=== PATIENT | male | born 1940 | race Caucasian/White ===

== ENCOUNTER → 2017-10-13 | Outpatient (CLI) | payer MEDICARE, OTHER ==
[~2017-10-13] MED LIST: FOSI20TA PO; GLUCTAB OR
--- NOTE | 2017-10-13 16:52 | RADRPT ---
EXAM DATE/TIME: 10/13/2017 14:32 CORRECTION Corrected on: October 14, 2017; [place] COMPARISON: No previous studies available for comparison. INDICATIONS : Tremors in bilateral hands and face. DOSE: 4.5 mCi Ioflupane Iodine-123 in 2.5 ml total volume MEDICATION(S): 130 mg Potasium Iodine PO one hour prior to injection SPECT IMAGIN.5 hrs. IMAGING: SPECT/CT imaging with fusion was performed. RADIATION DOSE: 30.27 CTDIvol (mGy) MEDICAL HISTORY : Hypertension. Diabetes mellitus type 2. SURGICAL HISTORY : Tonsillectomy. Skin cancer removal and facial reconstruction. ENCOUNTER: Initial ACUITY: 2 months PAIN SCALE: 0/10 LOCATION: Head. TECHNIQUE: SPECT imaging of the brain was performed in sagittal, axial and coronal planes. Attenuation correctio n was performed with computed tomography and both the attenuation correction and non-attenuation oz ected data sets were reviewed. FINDINGS: There is normal biodistribution of radionuclide with crescent-shaped areas of activity are in the str iatum on the left. However, the distribution of the right is somewhat lobulated. No corresponding abn ormality on the accompanying CT. Mild, diffuse but symmetric atrophic changes. CONCLUSION: Positive PHILIP scan with lobulated appearance of the right striatum. Pola Minor MD on October 13, 2017 at 16:44 Board Certified Radiologist. This report was verified electronically. William Cordoba MD FACR on October 14, 2017 at 11:50 Board Certified Radiologist. This report was verified electronically.
== END ==
LOC: HRAD 09:20
PROVIDERS: ATTEND Specialist
DX: R25.1 Tremor, unspecified (principal)
CPT/HCPCS: 78607; A9584

== ENCOUNTER 2018-06-25 17:30 | Observation (INO) ==
--- NOTE | 2018-06-25 19:01 | ED ---
HPI General Chief Complaint: Neuro Symptoms/Deficit Stated Complaint: Slurred Speech Time Seen by Provider: 06/25/18 18:41 Source: patient Mode of arrival: ambulatory Limitations: no limitations History of Present Illness HPI Narrative: Patient has altered mental status since 11 AM today. Patient also was somnolent and additionally showed weakness questionably to the left side. According to patient is much improved but still moderately confused at the present time. Related Data Home Medications Medication Instructions Recorded Confirmed escitalopram oxalate 10 mg PO DAILY 02/25/18 06/25/18 gabapentin 100 mg PO TID 02/25/18 06/25/18 gemfibrozil 600 mg PO BID 02/25/18 06/25/18 glyburide-metformin 1 tab PO BID 02/25/18 06/25/18 lisinopril 10 mg PO DAILY 02/25/18 06/25/18 metoprolol tartrate 25 mg PO BID 02/25/18 06/25/18 primidone 50 mg PO Q12H 02/25/18 06/25/18 sitagliptin [Januvia] 100 mg PO DAILY 02/25/18 06/25/18 Previous Rx's Medication Instructions Recorded aspirin 325 mg PO DAILY 30 Days #30 tab 06/26/18 hydrochlorothiazide 12.5 mg PO DAILY 30 Days #30 cap 06/26/18 Allergies Allergy/AdvReac Type Severity Reaction Status Date / Time No Known Allergies Allergy Verified 06/25/18 17:38 Review of Systems ROS: all other systems reviewed are negative [facility] Medical History Medical History Dementia (Acute) Diabetes (Acute) History of depression (Acute) History of skin cancer (Acute) Hypertension (Acute) Parkinson disease (Acute) Surgical History Surgical History History of facial surgery (Acute) History of nasal surgery (Acute) Hx of tonsillectomy (Acute) Family History Family History Other Family history non-contributory Social History Social History Substance History: No History of Abuse Second Hand Smoke Exposure: No Smoking Status: Never smoker How Often Do You Have a Drink Containing Alcohol: Never Recent Travel in [facility] within the Last 8 Weeks: No Recent Out of Country Travel within the Last 8 Weeks: No Immunization History Tetanus Immunization: Unsure Exam Narrative Exam Narrative: GENERAL: Minimal confusion but from 's perception there is a significant change since 11 AM that is improving as patient is evaluated SKIN: Focused skin assessment warm/dry. HEAD: Atraumatic. Normocephalic. EYES: Pupils equal and round. No scleral icterus. No injection or drainage. ENT: No nasal bleeding or discharge. Mucous membranes pink and moist. NECK: Trachea midline. No JVD. CARDIOVASCULAR: Regular rate and rhythm. No murmur appreciated. RESPIRATORY: No accessory muscle use. Clear to auscultation. Breath sounds equal bilaterally. GASTROINTESTINAL: Abdomen soft, non-tender, nondistended. Hepatic and splenic margins not palpable. MUSCULOSKELETAL: No obvious deformities. No clubbing. No cyanosis. No edema. NEUROLOGICAL: Awake and alert. No obvious cranial nerve deficits. Motor grossly within normal limits. Normal speech. Reflexes equal bilaterally PSYCHIATRIC: Appropriate mood and affect; insight and judgment normal. Course Reevaluation(s) Reevaluation #1: Patient improved as far as his mentation and is alert and functional. Although patient is still somewhat somnolent. CT and CTA of head and neck shows no significant abnormality other than some narrowing of carotid arteries. Case previously discussed with Dr. Finn who stated in the situation to admit with MRI in a.m. and neuro consult. Time: 23:39 Initial Documented Vital Signs Temperature 98.3 F 06/25/18 17:34 Pulse Rate 74 06/25/18 17:34 Respiratory Rate 16 06/25/18 17:34 Blood Pressure 120/63 06/25/18 17:34 Pulse Oximetry 95 06/25/18 17:34 Last Documented Vital Signs Temperature 97.1 F L 06/26/18 16:00 Pulse Rate 69 06/26/18 16:00 Respiratory Rate 20 06/26/18 16:00 Blood Pressure 166/81 H 06/26/18 16:00 Pulse Oximetry 98 06/26/18 16:00 Critical Care Time Critical Care Time: No NIH Stroke Scale NIH Stroke Scale Level of Consciousness: 0-Alert Orientation Questions: 0-Answers both correct Responds to Commands: 0-Both tasks correct Gaze Eye Movement: 0-Horizontal movement WNL Visual [place]: 0-No visual field defect Facial Movement: 0-Normal Motor Functions Arm LEFT: 0-No drift Motor Functions Arm RIGHT: 0-No drift Motor Functions Leg LEFT: 0-No drift Motor Functions Leg RIGHT: 0-No drift Limb Ataxia: 0-No ataxia Sensory Loss: 0-No sensory loss Best Language: 0-Normal Articulation: 0-Normal Extinction or Inattention Sensory: 0-Absent Total: 0 Medical Decision Making MDM Narrative Medical Screen Exam Complete: Yes Emergency Medical Condition: Yes Lab Data Result diagrams: 06/26/18 06:58 06/26/18 06:58 Lab Results 06/25/18 06/25/18 06/25/18 Range/Units 18:45 18:45 18:45 CBC w Diff Auto diff final WBC 9.3 (4.0-11.0) th/mm3 RBC 4.41 L (4.50-5.90) mil/mm3 Hgb 14.0 (13.0-17.0) gm/dL Hct 42.1 (39.0-51.0) % MCV 95.4 (80.0-100.0) fL MCH 31.8 (27.0-34.0) pg MCHC 33.3 (32.0-36.0) % RDW 13.8 (11.6-17.2) % Plt Count 206 (150-450) th/mm3 MPV 8.8 (7.0-11.0) fL Neut % (Auto) 58.0 (16.0-70.0) % Lymph % (Auto) 27.6 (9.0-44.0) % Russell % (Auto) 9.6 H (0.0-8.0) % Eos % (Auto) 3.9 (0.0-4.0) % Baso % (Auto) 0.9 (0.0-2.0) % Neut # (Auto) 5.2 (1.8-7.7) th/mm3 Lymph # (Auto) 2.6 (1.0-4.8) th/mm3 Russell # (Auto) 0.9 (0.0-0.9) th/mm3 Eos # (Auto) 0.4 (0.0-0.4) th/mm3 Baso # (Auto) 0.1 (0.0-0.2) th/mm3 WBC Differential . Differential Comment . PT 11.7 H (9.8-11.6) sec INR 1.2 Ratio APTT 26.1 (23.4-31.7) sec Sodium 143 (136-145) meq/L Potassium 4.3 (3.5-5.1) meq/L Chloride 110 H (98-107) meq/L Carbon Dioxide 24.7 (21.0-32.0) meq/L Anion Gap 8 (5-15) meq/L BUN 23 H (7-18) mg/dL Creatinine 1.10 (0.60-1.30) mg/dL Estimated GFR 65 L (>89) mL/min POC Glucose (68-110) mg/dl Random Glucose 144 H (74-106) mg/dL Calcium 8.9 (8.5-10.1) mg/dL Total Bilirubin (0.2-1.0) mg/dL AST (15-37) U/L ALT (12-78) U/L Alkaline Phosphatase (45-117) U/L Total Creatine Kinase 70 (39-308) U/L Troponin I Less than 0.02 L (0.02-0.05) ng/mL Total Protein (6.4-8.2) g/dL Albumin (3.4-5.0) g/dL Triglycerides (42-150) mg/dL Cholesterol (120-200) mg/dL LDL Cholesterol, Calc (0-99) mg/dL HDL Cholesterol (40.0-60.0) mg/dL Cholesterol/HDL Ratio Ratio Urine Color (Yellw/Straw) Urine Clarity (Clear) Urine pH (5.0-8.5) Ur Specific [place] (1.002-1.035) Urine Protein (Neg-Trace) mg/dL Urine Glucose (UA) (Negative) mg/dL Urine Ketones (Negative) mg/dL Urine Occult Blood (Negative) Urine Nitrate (Negative) Urine Bilirubin (Negative) Urine Urobilinogen (Less than 2) mg/dL Ur Leukocyte Esterase (Negative) Urine WBC (0-5) /hpf Hyaline Casts (0-3) /lpf Urine Mucus (Occasional) /lpf Micro UA Comment Ur Microscopic Review Urine Culture Comments 06/25/18 06/26/18 06/26/18 Range/Units 20:50 06:58 06:58 CBC w Diff Auto diff final WBC 8.2 (4.0-11.0) th/mm3 RBC 4.41 L (4.50-5.90) mil/mm3 Hgb 14.3 (13.0-17.0) gm/dL Hct 41.4 (39.0-51.0) % MCV 93.8 (80.0-100.0) fL MCH 32.5 (27.0-34.0) pg MCHC 34.6 (32.0-36.0) % RDW 13.2 (11.6-17.2) % Plt Count 177 (150-450) th/mm3 MPV 8.8 (7.0-11.0) fL Neut % (Auto) 58.1 (16.0-70.0) % Lymph % (Auto) 24.5 (9.0-44.0) % Russell % (Auto) 12.0 H (0.0-8.0) % Eos % (Auto) 4.7 H (0.0-4.0) % Baso % (Auto) 0.7 (0.0-2.0) % Neut # (Auto) 4.7 (1.8-7.7) th/mm3 Lymph # (Auto) 2.0 (1.0-4.8) th/mm3 Russell # (Auto) 1.0 H (0.0-0.9) th/mm3 Eos # (Auto) 0.4 (0.0-0.4) th/mm3 Baso # (Auto) 0.1 (0.0-0.2) th/mm3 WBC Differential . Differential Comment . PT (9.8-11.6) sec INR Ratio APTT (23.4-31.7) sec Sodium 144 (136-145) meq/L Potassium 3.8 (3.5-5.1) meq/L Chloride 110 H (98-107) meq/L Carbon Dioxide 26.6 (21.0-32.0) meq/L Anion Gap 7 (5-15) meq/L BUN 22 H (7-18) mg/dL Creatinine 1.00 (0.60-1.30) mg/dL Estimated GFR 73 L (>89) mL/min POC Glucose (68-110) mg/dl Random Glucose 137 H (74-106) mg/dL Calcium 8.9 (8.5-10.1) mg/dL Total Bilirubin 0.4 (0.2-1.0) mg/dL AST 34 (15-37) U/L ALT 52 (12-78) U/L Alkaline Phosphatase 88 (45-117) U/L Total Creatine Kinase (39-308) U/L Troponin I (0.02-0.05) ng/mL Total Protein 6.6 (6.4-8.2) g/dL Albumin 3.3 L (3.4-5.0) g/dL Triglycerides 235 H (42-150) mg/dL Cholesterol 168 (120-200) mg/dL LDL Cholesterol, Calc 78 (0-99) mg/dL HDL Cholesterol 43.1 (40.0-60.0) mg/dL Cholesterol/HDL Ratio 3.89 Ratio Urine Color Yellow (Yellw/Straw) Urine Clarity Clear (Clear) Urine pH 5.0 (5.0-8.5) Ur Specific [place] 1.025 (1.002-1.035) Urine Protein Negative (Neg-Trace) mg/dL Urine Glucose (UA) Negative (Negative) mg/dL Urine Ketones Negative (Negative) mg/dL Urine Occult Blood Negative (Negative) Urine Nitrate Negative (Negative) Urine Bilirubin Negative (Negative) Urine Urobilinogen 0.2 (Less than 2) mg/dL Ur Leukocyte Esterase Negative (Negative) Urine WBC 0-5 (0-5) /hpf Hyaline Casts 0-3 (0-3) /lpf Urine Mucus Few H (Occasional) /lpf Micro UA Comment Culture not ind Ur Microscopic Review Microscopic reviewed Urine Culture Comments Culture not ind 06/26/18 06/26/18 06/26/18 Range/Units 09:58 11:54 16:31 CBC w Diff WBC (4.0-11.0) th/mm3 RBC (4.50-5.90) mil/mm3 Hgb (13.0-17.0) gm/dL Hct (39.0-51.0) % MCV (80.0-100.0) fL MCH (27.0-34.0) pg MCHC (32.0-36.0) % RDW (11.6-17.2) % Plt Count (150-450) th/mm3 MPV (7.0-11.0) fL Neut % (Auto) (16.0-70.0) % Lymph % (Auto) (9.0-44.0) % Russell % (Auto) (0.0-8.0) % Eos % (Auto) (0.0-4.0) % Baso % (Auto) (0.0-2.0) % Neut # (Auto) (1.8-7.7) th/mm3 Lymph # (Auto) (1.0-4.8) th/mm3 Russell # (Auto) (0.0-0.9) th/mm3 Eos # (Auto) (0.0-0.4) th/mm3 Baso # (Auto) (0.0-0.2) th/mm3 WBC Differential Differential Comment PT (9.8-11.6) sec INR Ratio APTT (23.4-31.7) sec Sodium (136-145) meq/L Potassium (3.5-5.1) meq/L Chloride (98-107) meq/L Carbon Dioxide (21.0-32.0) meq/L Anion Gap (5-15) meq/L BUN (7-18) mg/dL Creatinine (0.60-1.30) mg/dL Estimated GFR (>89) mL/min POC Glucose 238 H 130 H 124 H (68-110) mg/dl Random Glucose (74-106) mg/dL Calcium (8.5-10.1) mg/dL Total Bilirubin (0.2-1.0) mg/dL AST (15-37) U/L ALT (12-78) U/L Alkaline Phosphatase (45-117) U/L Total Creatine Kinase (39-308) U/L Troponin I (0.02-0.05) ng/mL Total Protein (6.4-8.2) g/dL Albumin (3.4-5.0) g/dL Triglycerides (42-150) mg/dL Cholesterol (120-200) mg/dL LDL Cholesterol, Calc (0-99) mg/dL HDL Cholesterol (40.0-60.0) mg/dL Cholesterol/HDL Ratio Ratio Urine Color (Yellw/Straw) Urine Clarity (Clear) Urine pH (5.0-8.5) Ur Specific [place] (1.002-1.035) Urine Protein (Neg-Trace) mg/dL Urine Glucose (UA) (Negative) mg/dL Urine Ketones (Negative) mg/dL Urine Occult Blood (Negative) Urine Nitrate (Negative) Urine Bilirubin (Negative) Urine Urobilinogen (Less than 2) mg/dL Ur Leukocyte Esterase (Negative) Urine WBC (0-5) /hpf Hyaline Casts (0-3) /lpf Urine Mucus (Occasional) /lpf Micro UA Comment Ur Microscopic Review Urine Culture Comments Imaging Data Radiologist's impression: Head CT 06/25/18 18:46 CONCLUSION: 1. No focal or acute intracranial hemorrhage. 2. Stable bilateral cortical atrophy. 3. No significant change compared to the prior exam. Report was called by [Dr. Chaney to Dr. Winston at 7:10 PM. ] Head CTA 06/25/18 18:46 CONCLUSION: 1. Unremarkable CTA of the brain. Report was called by [Dr. Chaney to Dr. Finn at 7:30 PM ] Neck CTA 06/25/18 18:46 CONCLUSION: 1. Mild atherosclerotic plaquing at the right carotid bifurcation. 2. Mild to moderate atherosclerotic plaquing at the left carotid bifurcation. 3. No significant stenosis is seen involving the right or left internal carotid arteries. Head MRI 06/26/18 00:00 CONCLUSION: 1. Bilateral cortical atrophy and chronic white matter changes. Discharge Plan Discharge Disposition Patient Disposition: 01 Discharge Home Discharge Condition Condition: Stable Discharge Order Discharge Orders: Discharge Order (Routine); Ordered 06/26/18 Ordered By: Cuca Tyler Discharge Details Anticipated Discharge Date: 06/26/18 Physicians Team ED Provider: Miki Winston Primary Care Provider: Matthew Gibson Attending Provider: Param Beckman Other Providers: Lanny Chavez Status ED Status: Left Department Discharge Information Discharge Date/Time: 06/26/18 03:56
--- NOTE | 2018-06-25 19:14 | CT ---
EXAM DATE: 06/25/2018 7:08 PM EST AGE/SEX: 78 years / Male INDICATIONS: Stroke alert. Resolved slurred speech. Confusion. CLINICAL DATA: This is the patient's initial encounter. Patient reports that signs and symptoms have been present for 1 day and indicates a pain score of 0/10. MEDICAL/SURGICAL HISTORY: Dementia. Parkinson's disease. Diabetes. Hypertension. None. RADIATION DOSE: 51.50 CTDI (mGy) COMPARISON: [facility] [place], CT HEAD W/O CONTRAST, 02/25/2018. . TECHNIQUE: CT of the head without contrast. Using automated exposure control and adjustment of the mA and/or kV according to patient size, radiation dose was kept as low as reasonably achievable to ob tain optimal diagnostic quality images. DICOM format image data is available electronically for revi ew and comparison. FINDINGS: Cerebrum: The ventricles are normal for age. There is stable bilateral cortical atrophy. No evidenc e of midline shift, mass lesion, hemorrhage or acute infarction. No extraaxial fluid collections are seen. Posterior Fossa: The cerebellum and brainstem are intact. The 4th ventricle is midline. The cerebe llopontine angle is unremarkable. Extracranial: The visualized portion of the orbits is intact. Skull: The calvaria is intact. No evidence of skull fracture. No new or significant changes are demonstrated compared to the prior examination. CONCLUSION: 1. No focal or acute intracranial hemorrhage. 2. Stable bilateral cortical atrophy. 3. No significant change compared to the prior exam. Report was called by [Dr. Chaney to Dr. Winston at 7:10 PM. ] Electronically signed by: Erick Chaney MD 06/25/2018 7:12 PM EST
[2018-06-25 19:16] LABS: Baso # (Auto) 0.1 th/mm3 (0.0-0.2); Baso % (Auto) 0.9 % (0.0-2.0); Eos # (Auto) 0.4 th/mm3 (0.0-0.4); Eos % (Auto) 3.9 % (0.0-4.0); Hematocrit 42.1 % (39.0-51.0); Lymph # (Auto) 2.6 th/mm3 (1.0-4.8); Lymph % (Auto) 27.6 % (9.0-44.0); Mean Corpuscular HGB Conc 33.3 % (32.0-36.0); Mean Corpuscular Hemoglobin 31.8 pg (27.0-34.0); Mean Corpuscular Volume 95.4 fL (80.0-100.0); Mean Platelet Volume 8.8 fL (7.0-11.0); Mono # (Auto) 0.9 th/mm3 (0.0-0.9); Mono % (Auto) 9.6 % (0.0-8.0); Neut # (Auto) 5.2 th/mm3 (1.8-7.7); Platelet Count 206 th/mm3 (150-450); Red Blood Count 4.41 mil/mm3 (4.50-5.90); Red Cell Distribution Width 13.8 % (11.6-17.2); White Blood Count 9.3 th/mm3 (4.0-11.0)
[2018-06-25 19:18] LABS: Chloride 110 meq/L (98-107); Potassium 4.3 meq/L (3.5-5.1); Sodium 143 meq/L (136-145)
[2018-06-25 19:20] LABS: Calcium 8.9 mg/dL (8.5-10.1)
[2018-06-25 19:21] LABS: Anion Gap 8 meq/L (5-15); Blood Urea Nitrogen 23 mg/dL (7-18); Carbon Dioxide 24.7 meq/L (21.0-32.0); Glucose,Random 144 mg/dL (74-106)
[2018-06-25 19:24] LABS: Activated Partial Thrombo Time 26.1 sec (23.4-31.7); Glomerular Filtration Rate 65 mL/min (>89); INR 1.2 Ratio; Prothrombin Time 11.7 sec (9.8-11.6)
[2018-06-25 19:32] LABS: Creatine Kinase 70 U/L (39-308)
--- NOTE | 2018-06-25 19:32 | CT ---
EXAM DATE: 06/25/2018 7:20 PM EST AGE/SEX: 78 years / Male INDICATIONS: Stroke alert. Resolved slurred speech. Confusion. CLINICAL DATA: This is the patient's initial encounter. Patient reports that signs and symptoms have been present for 1 day and indicates a pain score of 0/10. MEDICAL/SURGICAL HISTORY: Dementia. Parkinson's disease. Diabetes. Hypertension. None. RADIATION DOSE: 42.28 CTDI (mGy) ; Combined studies COMPARISON: No prior exams available for comparison. TECHNIQUE: Volumetric scanning was performed using a multi-row detector CT scanner during bolus infu matthew of 100 ml Visipaque 320 (iodixanol) nonionic water-soluble contrast as a cumulative dose for mu ltiple exams. The data was post processed with a variety of visualization algorithms including full volume maximum intensity projection, multi-planar sliding thin slab reformation, curved planar refor mation, and surface rendering techniques. Using automated exposure control and adjustment of the mA and/or kV according to patient size, radiation dose was kept as low as reasonably achievable to obtai n optimal diagnostic quality images. DICOM format image data is available electronically for review and comparison. FINDINGS: There is excellent visualization of the major intracranial arteries out to the second-order branch ve ssels. There is no evidence for aneurysm, vessel truncation or stenosis, and no evidence for vascula r malformation. CONCLUSION: 1. Unremarkable CTA of the brain. Report was called by [Dr. Chaney to Dr. Finn at 7:30 PM ] Electronically signed by: Erick Chaney MD 06/25/2018 7:31 PM EST
--- NOTE | 2018-06-25 19:45 | CT ---
EXAM DATE: 06/25/2018 7:36 PM EST AGE/SEX: 78 years / Male INDICATIONS: Stroke alert. Resolved slurred speech. Confusion. CLINICAL DATA: This is the patient's initial encounter. Patient reports that signs and symptoms have been present for 1 day and indicates a pain score of 0/10. MEDICAL/SURGICAL HISTORY: Dementia. Parkinson's disease. Diabetes. Hypertension. None. RADIATION DOSE: 42.28 CTDI (mGy) ; Combined studies COMPARISON: No prior exams available for comparison. TECHNIQUE: Volumetric scanning was performed using a multirow detector CT scanner during bolus infus ion of 100 ml Visipaque 320 (iodixanol) nonionic water-soluble contrast as a cumulative dose for mul tiple exams. The data was postprocessed with a variety of visualization algorithms including full-v olume maximum intensity projection, multiplanar sliding thin-slab reformation, curved-planar reformat ion, and surface-rendering techniques. Using automated exposure control and adjustment of the mA and /or kV according to patient size, radiation dose was kept as low as reasonably achievable to obtain o ptimal diagnostic quality images. DICOM format image data is available electronically for review and comparison. FINDINGS: Aortic Arch: There is a three-vessel origin of the great vessels from the aorta. No evidence of ost ial narrowing Right Carotid: The common carotid artery is intact. There is mild calcified plaquing at the carotid bifurcation. There is no evidence of any focal or significant stenosis at the origin of the right int ernal or external vessels. The right internal carotid artery is patent throughout its extent.. Left Carotid: The common carotid artery is intact. There is some mild to moderate atherosclerotic pl aquing at the carotid bifurcation. No focal significant stenosis is seen at the origin of the interna l or external vessels. The left internal carotid artery is patent throughout its extent.. Vertebrals: The vertebral arteries have a symmetric diameter. No stenotic lesions are seen. Percent stenosis is calculated using the diameter of the stenotic region over the diameter of the nor mal distal internal carotid artery. CONCLUSION: 1. Mild atherosclerotic plaquing at the right carotid bifurcation. 2. Mild to moderate atherosclerotic plaquing at the left carotid bifurcation. 3. No significant stenosis is seen involving the right or left internal carotid arteries. Electronically signed by: Erick Chaney MD 06/25/2018 7:43 PM EST
[2018-06-25 21:05] LABS: Bilirubin,Urine Negative (Negative); Clarity,Urine Clear (Clear); Color,Urine Yellow (Yellw/Straw); Glucose,Urine (UA) Negative (Negative); Leukocyte Esterase,Urine Negative (Negative); Nitrite,Urine Negative (Negative); Specific Gravity,Urine 1.025 (1.002-1.035); Urobilinogen,Urine 0.2 mg/dL (Less than 2)
[2018-06-25 21:17] LABS: Hyaline Casts,Urine 0-3 /lpf (0-3); WBC,Urine 0-5 /hpf (0-5)
[2018-06-25 21:18] LABS: Mucus,Urine Few /lpf (Occasional)
[2018-06-25] MEDS ORDERED: Aspirin 300 MG Supp RECTAL ONE (23:09)
[2018-06-25] MEDS ORDERED: Bisacodyl 10 MG Supp RECTAL PRN (23:51)
[2018-06-25] MEDS ORDERED: Acetaminophen 325 MG Tablet PO PRN (23:51)
[2018-06-26] MEDS: Sod Chloride 0.9% Inj 1,000 ML IV.CONT SCH ×4 (00:18→16:27)
[2018-06-26 08:15] LABS: Baso # (Auto) 0.1 th/mm3 (0.0-0.2); Baso % (Auto) 0.7 % (0.0-2.0); Eos # (Auto) 0.4 th/mm3 (0.0-0.4); Eos % (Auto) 4.7 % (0.0-4.0); Hematocrit 41.4 % (39.0-51.0); Hemoglobin 14.3 gm/dL (13.0-17.0); Lymph % (Auto) 24.5 % (9.0-44.0); Mean Corpuscular HGB Conc 34.6 % (32.0-36.0); Mean Corpuscular Hemoglobin 32.5 pg (27.0-34.0); Mean Corpuscular Volume 93.8 fL (80.0-100.0); Mean Platelet Volume 8.8 fL (7.0-11.0); Neut # (Auto) 4.7 th/mm3 (1.8-7.7); Neut % (Auto) 58.1 % (16.0-70.0); Platelet Count 177 th/mm3 (150-450); Red Blood Count 4.41 mil/mm3 (4.50-5.90); Red Cell Distribution Width 13.2 % (11.6-17.2); White Blood Count 8.2 th/mm3 (4.0-11.0)
--- NOTE | 2018-06-26 08:21 | P.HP ---
History of Present Illness Primary Care Physician: Matthew Gibson DO Chief Complaint: Altered mental status History of Present Illness: This is a 78-year-old male patient with a known medical history of hypertension , hyperlipidemia, diabetes who presented to the ED with altered mental status. Patient seen and examined, sitting on side of bed eating breakfast, completely alert and oriented x4. Patient states that yesterday afternoon he went to go lie down and rest after a couple hours he awoke feeling dizzy as well as with blurry vision and according to his speech was slurring. Patient also admits to some confusion. He states that over the past week he has been feeling overall fatigued and felt like he may have been developing a cold. He denies any recent fevers, chills, headache, cough, shortness of breath, dumping , nausea, vomiting or diarrhea dysuria. He does state that him and his went to [place] from Thursday to Thursday just arrived back yesterday, he states that he was not eating well going out to restaurants as well as taking his medications for 3 days. Patient follows closely with his primary care physician , denies any new changes to his medications. His diabetes is well controlled. Blood pressure is usually well controlled on his regimen from home. Patient feels much improved after IV fluids and eating breakfast, blood pressure mildly elevated, awaiting MRI and neurology consult. - Diagnosis (1) TIA (transient ischemic attack) Review of Systems All other systems reviewed negative except as stated in HPI PMFSH - History History Provided By: Patient - Medical History Medical History: Medical History (Last Reviewed 06/26/18 @ 08:13 by Cuca Tyler) Dementia Diabetes History of depression History of skin cancer Hypertension Parkinson disease - Surgical History Surgical History: Surgical History (Last Updated 06/26/18 @ 08:37 by Cuca Tyler) History of facial surgery History of nasal surgery Hx of tonsillectomy - Family History Family History: Family History (Last Updated 06/26/18 @ 08:13 by Cuca Tyler) Other Family history non-contributory - Social History I have reviewed the patient's Social History: Yes - Tobacco History Second Hand Smoke Exposure: No Smoking Status: Never smoker - Alcohol History How Often Do You Have a Drink Containing Alcohol: Never - Substance Use History Substance History: No History of Abuse - Travel History Recent Travel in the [place] Within the Last 8 Weeks: No Recent Travel Out of the Country Within the Last 8 Weeks: No - Immunization History Tetanus Immunization: >5 Years Hx Influenza Vaccine This Season: Yes Medications and Allergies Active Medications: Active Medications Acetaminophen (Tylenol) 650 mg PO Q4H PRN PRN Reason: Temp > 100.4 Al Hydroxide/Mg Hydroxide (Milk Of Magnesia Liq) 30 ml PO Q12H PRN PRN Reason: Mild Constipation Aspirin (Ecotrin) 81 mg PO DAILY AGNEL LUIS Bisacodyl (Dulcolax Supp) 10 mg RECTAL DAILY PRN PRN Reason: SEVERE CONSITIPATION Sodium Chloride (Ns Inj) 1,000 mls @ 100 mls/hr IV.CONT .Q10H [facility] Last Admin: 06/26/18 05:06 Dose: 100 mls/hr Lactulose (Lactulose Liq) 30 ml PO DAILY PRN PRN Reason: SEVERE CONSITIPATION Ondansetron HCl (Zofran Inj) 4 mg IV.PUSH Q6H PRN PRN Reason: NAUSEA OR VOMITING Senna/Docusate Sodium (Josephine-Colace) 1 tab PO BID [facility] Sennosides (Senokot) 17.2 mg PO Q12H PRN PRN Reason: Moderate Constipation Sodium Chloride (Ns Flush) 2 ml IV.FLUSH BID ANGEL LUIS Sodium Chloride (Ns Flush) 2 ml IV.FLUSH PRN PRN PRN Reason: FLUSH AFTER USING IV ACCESS Allergies Allergy/AdvReac Type Severity Reaction Status Date / Time No Known Allergies Allergy Verified 06/25/18 17:38 Home Medications Medication Instructions Recorded Confirmed Type escitalopram oxalate 10 mg PO DAILY 02/25/18 06/25/18 History gabapentin 100 mg PO TID 02/25/18 06/25/18 History gemfibrozil 600 mg PO BID 02/25/18 06/25/18 History glyburide-metformin 1 tab PO BID 02/25/18 06/25/18 History lisinopril 10 mg PO DAILY 02/25/18 06/25/18 History metoprolol tartrate 25 mg PO BID 02/25/18 06/25/18 History primidone 50 mg PO Q12H 02/25/18 06/25/18 History sitagliptin [Januvia] 100 mg PO DAILY 02/25/18 06/25/18 History Exam Vital signs: Vital Signs 06/25/18 17:34 06/25/18 18:15 06/25/18 19:15 Temperature 98.3 F Pulse Rate 74 71 71 Respiratory Rate 16 16 Blood Pressure 120/63 167/83 H Pulse Oximetry 95 95 95 06/25/18 20:40 06/25/18 22:27 06/26/18 00:05 Temperature Pulse Rate 70 67 78 Respiratory Rate 18 Blood Pressure 143/81 H 135/72 140/78 Pulse Oximetry 97 96 97 06/26/18 01:50 06/26/18 03:37 06/26/18 04:07 Temperature 98.5 F Pulse Rate 84 78 70 Respiratory Rate 18 18 20 Blood Pressure 156/78 H 151/71 H 166/79 H Pulse Oximetry 97 97 99 06/26/18 04:48 Temperature Pulse Rate 72 Respiratory Rate Blood Pressure Pulse Oximetry Intake & Output 06/25/18 06/26/18 06/26/18 18:59 06:59 18:59 Intake Total 1120 / 1120 Output Total 350 / 350 Balance 770 / 770 Weight 100 kg 100 kg Intake: IV 1000 / 1000 NS Inj 1,000 ML @ 100 mls/hr IV 1000 / 1000 .CONT .Q10H ANGEL LUIS Rx#:[id number] Oral 120 / 120 Output: Urine 350 / 350 Other: Date of Last Bowel Movement 06/25/18 Weight On Admission 100 kg Narrative: GENERAL: Well-developed, well-nourished elderly gentleman patient in [facility]. Alert and oriented x4. No weakness in upper and lower extremities. SKIN: Warm and dry. No rash. HEAD: Normocephalic. Atraumatic. EYES: Pupils equal and round. No scleral icterus. No injection or drainage. ENT: No nasal bleeding or discharge. Mucous membranes pink and moist. NECK: Supple. Trachea midline. CARDIOVASCULAR: Regular rate and rhythm. S1, S2 noted. RESPIRATORY: No accessory muscle use. Clear to auscultation. Breath sounds equal bilaterally. GASTROINTESTINAL: Abdomen soft, non-tender, nondistended. Normoactive bowel sounds x4. MUSCULOSKELETAL: No obvious deformities. Extremities without clubbing, cyanosis , or edema. NEUROLOGICAL: Awake and alert. No obvious cranial nerve deficits. Motor grossly within normal limits. 5/5 muscle strength in bilateral upper and lower extremities. Normal speech. PSYCHIATRIC: Appropriate mood and affect; insight and judgment normal. Results - Labs CBC & Chem 7: 06/26/18 06:58 06/25/18 18:45 Labs: Laboratory Results - last 24 hr 06/25/18 06/25/18 06/25/18 18:45 18:45 18:45 CBC w Diff Auto diff final WBC 9.3 RBC 4.41 L Hgb 14.0 Hct 42.1 MCV 95.4 MCH 31.8 MCHC 33.3 RDW 13.8 Plt Count 206 MPV 8.8 Neut % (Auto) 58.0 Lymph % (Auto) 27.6 Shelby % (Auto) 9.6 H Eos % (Auto) 3.9 Baso % (Auto) 0.9 Neut # (Auto) 5.2 Lymph # (Auto) 2.6 Shelby # (Auto) 0.9 Eos # (Auto) 0.4 Baso # (Auto) 0.1 WBC Differential . Differential Comment . PT 11.7 H INR 1.2 APTT 26.1 Sodium 143 Potassium 4.3 Chloride 110 H Carbon Dioxide 24.7 Anion Gap 8 BUN 23 H Creatinine 1.10 Estimated GFR 65 L Random Glucose 144 H Calcium 8.9 Total Creatine Kinase 70 Troponin I Less than 0.02 L Urine Color Urine Clarity Urine pH Ur Specific [place] Urine Protein Urine Glucose (UA) Urine Ketones Urine Occult Blood Urine Nitrate Urine Bilirubin Urine Urobilinogen Ur Leukocyte Esterase Urine WBC Hyaline Casts Urine Mucus Micro UA Comment Ur Microscopic Review Urine Culture Comments 06/25/18 20:50 CBC w Diff WBC RBC Hgb Hct MCV MCH MCHC RDW Plt Count MPV Neut % (Auto) Lymph % (Auto) Shelby % (Auto) Eos % (Auto) Baso % (Auto) Neut # (Auto) Lymph # (Auto) [place] # (Auto) Eos # (Auto) Baso # (Auto) WBC Differential Differential Comment PT INR APTT Sodium Potassium Chloride Carbon Dioxide Anion Gap BUN Creatinine Estimated GFR Random Glucose Calcium Total Creatine Kinase Troponin I Urine Color Yellow Urine Clarity Clear Urine pH 5.0 Ur Specific [place] 1.025 Urine Protein Negative Urine Glucose (UA) Negative Urine Ketones Negative Urine Occult Blood Negative Urine Nitrate Negative Urine Bilirubin Negative Urine Urobilinogen 0.2 Ur Leukocyte Esterase Negative Urine WBC 0-5 Hyaline Casts 0-3 Urine Mucus Few H Micro UA Comment Culture not ind Ur Microscopic Review Microscopic reviewed Urine Culture Comments Culture not ind - Imaging Impressions Head CT 06/25/18 18:46 CONCLUSION: 1. No focal or acute intracranial hemorrhage. 2. Stable bilateral cortical atrophy. 3. No significant change compared to the prior exam. Report was called by [Dr. Chaney to Dr. Winston at 7:10 PM. ] Head CTA 06/25/18 18:46 CONCLUSION: 1. Unremarkable CTA of the brain. Report was called by [Dr. Chaney to Dr. Finn at 7:30 PM ] Neck CTA 06/25/18 18:46 CONCLUSION: 1. Mild atherosclerotic plaquing at the right carotid bifurcation. 2. Mild to moderate atherosclerotic plaquing at the left carotid bifurcation. 3. No significant stenosis is seen involving the right or left internal carotid arteries. Caprini VTE Risk Assessment Caprini VTE Risk Assessment: Moderate/High Risk (score >= 2) Caprini Risk Assessment Model: Point Value = 1 Point Value = 2 Point Value = 3 Point Value = 5 Age 41-60 Minor surgery BMI > 25 kg/m2 Swollen legs Varicose veins or History of unexplained or recurrent spontaneous Oral contraceptives or hormone replacement Sepsis (< 1 month) Serious lung disease, including pneumonia (< 1 month) Abnormal pulmonary function Acute myocardial infarction Congestive heart failure (< 1 month) History of inflammatory bowel disease Medical patient at bed rest Age 61-74 Arthroscopic surgery Major open surgery (> 45 min) Laparoscopic surgery (> 45 min) Malignancy Confined to bed (> 72 hours) Immobilizing plaster cast Central venous access Age >= 75 History of VTE Family history of VTE Factor V Leiden Prothrombin [id number] Lupus anticoagulant Anticardiolipin antibodies Elevated serum homocysteine Heparin-induced thrombocytopenia Other congenital or acquired thrombophilia Stroke (< 1 month) Elective arthroplasty Hip, pelvis, or leg fracture Acute spinal cord injury (< 1 month) Prophylaxis Regimen: Total Risk Factor Score Risk Level Prophylaxis Regimen 0-1 Low Early ambulation 2 Moderate Order ONE of the following: *Sequential Compression Device (SCD) *Heparin 5000 units SQ BID 3-4 Higher Order ONE of the following medications: *Heparin 5000 units SQ TID *Enoxaparin/Lovenox 40 mg SQ daily (WT < 150 kg, CrCl > 30 mL/min) *Enoxaparin/Lovenox 30 mg SQ daily (WT < 150 kg, CrCl > 10-29 mL/min) *Enoxaparin/Lovenox 30 mg SQ BID (WT < 150 kg, CrCl > 30 mL/min) AND/OR *Sequential Compression Device (SCD) 5 or more Highest Order ONE of the following medications: *Heparin 5000 units SQ TID (Preferred with Epidurals) *Enoxaparin/Lovenox 40 mg SQ daily (WT < 150 kg, CrCl > 30 mL/min) *Enoxaparin/Lovenox 30 mg SQ daily (WT < 150 kg, CrCl > 10-29 mL/min) *Enoxaparin/Lovenox 30 mg SQ BID (WT < 150 kg, CrCl > 30 mL/min) AND *Sequential Compression Device (SCD) Assessment and Plan - Assessment (1) TIA (transient ischemic attack) Code(s): G45.9 - Transient cerebral ischemic attack, unspecified Status: Acute - Plan This is a 78-year-old male patient with: Altered mental status rule out TIA/CVA -Patient presented with a 1-day history of altered mental status. -Head CT reviewed and no acute findings. Awaiting MRI today. Follow. -Head and Neck CTA reviewed with some atherosclerosis. Follow lipid panel. Restarted statin from home. -ED consulted neurology, awaiting input and recommendations. -EKG reviewed showing controlled heart rate, first degree heart block with PVC. Flipped t-waves in lead III and V1. -Continued on cardiac telemetry. Monitor for any arrhythmias. -Check orthostatic blood pressures. Continue IV fluid for now. -Patient is much improved this morning. Eating breakfast without any dysphagia or continued AMS. -Was given aspirin in ED, will continue daily. -CBC and BMP reviewed, essentially unremarkable. Awaiting repeat labs today. -PT evaluation ordered, recommendations pending. -Supportive care. Hypertension, chronic -Continue to monitor blood trends. -Continue home medications. Hyperlipidemia, chronic -Continue home statin. -Added lipid panel. Follow. Type 2 diabetes mellitus, chronic Accu-Chek before meals at bedtime, sliding scale, cover as needed. Hold home medications for now. DVT Prophylaxis: SCDs. Await MRI results. Discharge Planning: Likely discharge home this afternoon if MRI results negative and neurology clears.
[2018-06-26] MEDS ORDERED: Dextrose 50% in Water 50 ML Vial IV.PUSH PRN (08:34)
[2018-06-26] MEDS ORDERED: Primidone 50 MG Tablet PO SCH (08:45)
[2018-06-26 08:57] LABS: Chloride 110 meq/L (98-107); Potassium 3.8 meq/L (3.5-5.1); Sodium 144 meq/L (136-145)
[2018-06-26] MEDS ORDERED: Metoprolol Tartrate 25 MG Tablet PO SCH (09:00)
[2018-06-26] MEDS ORDERED: Gemfibrozil 600 MG Tablet PO SCH (09:00)
[2018-06-26] MEDS ORDERED: Lisinopril 10 MG Tablet PO SCH (09:00)
[2018-06-26] MEDS ORDERED: Escitalopram 10 MG Tablet PO SCH (09:00)
[2018-06-26] MEDS ORDERED: Senna/Docusate Sodium 8.6/50 MG Tablet PO SCH (09:00)
[2018-06-26 09:03] LABS: Albumin 3.3 g/dL (3.4-5.0); Anion Gap 7 meq/L (5-15); Blood Urea Nitrogen 22 mg/dL (7-18); Calcium 8.9 mg/dL (8.5-10.1); Carbon Dioxide 26.6 meq/L (21.0-32.0); Glucose,Random 137 mg/dL (74-106)
[2018-06-26 09:06] LABS: Alanine Aminotransferase 52 U/L (12-78); Aspartate Aminotransferase 34 U/L (15-37); Glomerular Filtration Rate 73 mL/min (>89)
[2018-06-26 09:08] LABS: Total Protein 6.6 g/dL (6.4-8.2)
[2018-06-26 09:09] LABS: Alkaline Phosphatase 88 U/L (45-117)
[2018-06-26] MEDS: Gabapentin 100 MG Capsule PO SCH ×3 (09:46→17:31)
--- NOTE | 2018-06-26 10:56 | MR ---
EXAM DATE: 06/26/2018 10:43 AM EST AGE/SEX: 78 years / Male INDICATIONS: TIA. CLINICAL DATA: This is the patient's initial encounter. Patient reports that signs and symptoms have been present for 1 day and indicates a pain score of 0/10. MEDICAL/SURGICAL HISTORY: Carcinoma, skin cancer. Dementia. Pancreatitis. Hypertension. Ton sillectomy. Skin cancer removed with facial reconstruction. COMPARISON: [facility], CT HEAD W/O CONTRAST, 06/25/2018. . TECHNIQUE: Multiplanar, multisequence examination of the brain was performed without contrast. FINDINGS: Cerebrum: The ventricles are normal for age. There is bilateral cortical atrophy characteristic for patient's age. No evidence of midline shift, mass lesion, hemorrhage or acute infarction. No extraax ial fluid collections are seen. The pituitary gland and suprasellar cistern are normal in configurat ion. White Matter: Mild chronic white matter changes are noted bilaterally consistent with ischemic demye linization. Posterior Fossa: The cerebellum and brainstem are intact. The 4th ventricle is midline. The cerebel lopontine angle is unremarkable. The cerebellar tonsils are normal in position. Diffusion Imaging: No focal areas of restricted diffusion are seen. No evidence of acute infarction . Extracranial: The visualized portions of the orbits and paranasal sinuses are unremarkable. No significant changes compared to the recent CT scan of the brain. CONCLUSION: 1. Bilateral cortical atrophy and chronic white matter changes. Electronically signed by: Erick Chaney MD 06/26/2018 10:55 AM EST
[2018-06-26 11:16] LABS: Cholesterol 168 mg/dL (120-200)
[2018-06-26 11:18] LABS: Chol/HDL Ratio 3.89 Ratio; HDL Cholesterol 43.1 mg/dL (40.0-60.0); LDL Cholesterol,Calculated 78 mg/dL (0-99); Triglycerides 235 mg/dL (42-150)
--- NOTE | 2018-06-26 11:32 | MB ---
cc: Lanny Chavez MD DATE: 06/26/2018 REASON FOR CONSULTATION: Change in mental status, possible TIA. HISTORY OF PRESENT ILLNESS: This is a pleasant 78-year-old man who I see in the office with a history of hypertension, hyperlipidemia, diabetes, essential tremor, chronic back and neck pain. Was in his usual state of health in the office with I believe his , [place]. He was working on some taxes. It was about 3 o'clock in the afternoon when he no longer could concentrate. Had trouble completing the forms. He decided to go to the recliner and lie down. He took a nap for about 2 hours. When his woke him up, apparently he was very confused, had trouble ambulating, started not making any sense and so forth. Hence, he was brought into the ER for evaluation. Prior to that, they were both in [place] for a few days. He states that he did well there. He did not have any issues. He has chronic back pain with some weakness in the left leg. At times, he feels his left leg giving out on him. He seems to be back at baseline. He is sitting at the edge of the bed, eating breakfast completed breakfast. No trouble swallowing, no weakness, no confusion. Denies any shortness of breath, chest pain, numbness, tingling. PAST MEDICAL HISTORY: Some mild dementia, diabetes, hypertension, essential tremor, hyperlipidemia, chronic back pain. PAST SURGICAL HISTORY: Facial nasal surgery, tonsillectomy. FAMILY HISTORY: Really noncontributory at this point. SOCIAL HISTORY: , does not smoke, does not drink. HOME MEDICINES: Please refer to his MAR, but he does take a baby aspirin daily. PHYSICAL EXAMINATION: VITAL SIGNS: Stable. His temperature is 96.8, pulse 69, respiratory rate 20. Currently, his blood pressure is slightly elevated per protocol at 163/89, saturating at 95%. NECK: Supple. I do not appreciate any bruits. HEART: Regular. NEUROLOGIC: He is awake. He is alert. He is oriented. He is fluent. There is no facial asymmetry. Pupils reactive. Visual dai are full. Tongue midline. Motor walters, tone is intact, but he does have tremor on intention bilaterally. He has not received his medicines. There is no drift. Symmetrical director of admissions. No significant leg lag, just some chronic weakness in the lower legs. DTRs are 1+. Toes are both downgoing. Cerebellar normal. Gait is withheld. Defer to PT, as there is no walker at bedside. LABORATORY DATA: CBC is reviewed. His coag panel: PT is 11.7. Chemistries: BUN 22, his GFR is 73, glucose 137. His lipids are pending. Cardiac enzymes were unremarkable. His urine showed some mucus, but otherwise nothing to indicate an infection. He did have a head CT. There was no acute abnormality. He has some atrophy, no change from old exam. Head CTA showed no occlusions and neck CTA showed mild atherosclerotic plaquing in the right carotid bifurcation and [id number] plaquing left carotid bifurcation, but no significant stenosis otherwise. IMPRESSION: A 78-year-old man with change in mental status. May have had a transient ischemic attack. Doubt seizure. There was no report of any shaking, loss of consciousness, incontinence, etc. The patient seems to be back to baseline. Would recommend obtaining an MRI, as the CT did not show anything acute. MRI would be more useful for acute process. We will get a 2D echo since that was not ordered. Could check his lipid panel. Continue him on an aspirin, but I would increase it to full dose. Continue a statin. It does not look like he was hypoglycemic yesterday either, but watch his Accu-Chek, adjusting medications accordingly. Maintain him on telemetry. He will need a outpatient Holter monitor. Have PT get him out of bed and ambulate him and resume his primidone for his tremor and his home medications, unless there is a contraindication. Start normalizing his blood pressure as well. If he is stable and workup is unremarkable, he can be discharged home. Have him follow up with me in the office post discharge. MD MEHRAN Flaherty/jet , 09:17 AM , 09:25 AM
[2018-06-26] MEDS: Insulin NovoLOG Aspart Correctional Sugar Inj SQ SCH ×2 (12:06→16:31)
--- NOTE | 2018-06-26 12:54 | ECG ---
Date Performed: 06/25/2018 Time Performed: 19:29:46 PTAGE: 78 years EKG: Sinus rhythm WITH FIRST DEGREE AV BLOCK WITH OCCASIONAL VENTRICULAR PREMATURE COMPLEXES MARKED LEFT AXIS DEVIATIO N LOW QRS VOLTAGE IN PRECORDIAL LEADS ANTEROSEPTAL MYOCARDIAL INFARCTION ABNORMAL ECG Since the PREVIOUS TRACING , no significant change noted PREVIOUS TRACIN02/25/2018 14.43 DOCTOR: Estuardo Tompkins Interpretating Date/Time 06/26/2018 12:53:01
[2018-06-26 13:50] VITALS: O2SAT 98
--- NOTE | 2018-06-26 14:17 | ECHRPT ---
Indication: CVA/TIA CONCLUSIONS The left ventricular systolic function is low normal with an estimated ejection fraction in the rang e of 50- 55%. Moderate concentric left ventricular hypertrophy. [id number] mitral valve regurgitation. There is mild tricuspid valve regurgitation. BP: / HR: Rhythm: MEASUREMENTS (Male / Female) Normal Values Technical Quality: 2D ECHO LV Diastolic Diameter PLAX 5.3 cm 4.2 - 5.9 / 3.9 - 5.3 cm LV Systolic Diameter PLAX 4.0 cm IVS Diastolic Thickness 1.3 cm 0.6 - 1.0 / 0.6 - 0.9 cm LVPW Diastolic Thickness 1.6 cm 0.6 - 1.0 / 0.6 - 0.9 cm LV Relative Wall Thickness 0.5 RV Internal Dim ED PLAX 3.4 cm LVOT Diameter 2.5 cm Aortic Root Diameter 2.8 cm LA Systolic Diameter LX 4.8 cm 3.0 - 4.0 / 2.7 - 3.8 cm LV Ejection Fraction MOD BP 55.0 % >= 55 % LV Ejection Fraction MOD 4C 50.3 % LV Ejection Fraction 4C AL 51.7 % LV Ejection Fraction MOD 2C 57.9 % LV Ejection Fraction 2C AL 59.6 % M-MODE Aortic Root Diameter MM 3.3 cm LA Systolic Diameter MM 4.6 cm LA Ao Ratio MM 1.4 AV Cusp Separation MM 1.9 cm DOPPLER AV Peak Velocity 144.0 cm/s AV Peak Gradient 8.3 mmHg LVOT Peak Velocity 95.6 cm/s LVOT Peak Gradient 3.7 mmHg AV Area Cont Eq pk 3.3 cm MV Peak Velocity 101.0 cm/s MV Peak Gradient 4.1 mmHg MV Mean Velocity 59.1 cm/s MV Mean Gradient 2.0 mmHg Mitral E Point Velocity 67.2 cm/s Mitral A Point Velocity 99.4 cm/s Mitral E to A Ratio 0.7 LV E' Septal Velocity 5.0 cm/s Mitral E to LV E' Septal Ratio 13.5 TR Peak Velocity 251.0 cm/s TR Peak Gradient 25.2 mmHg Right Atrial Pressure 10.0 mmHg Pulmonary Artery Systolic Pressu 35.2 mmHg Right Ventricular Systolic Press 35.2 mmHg PV Peak Velocity 90.5 cm/s PV Peak Gradient 3.3 mmHg FINDINGS LEFT VENTRICLE Normal left ventricular size. Moderate concentric left ventricular hypertrophy. The left ventricular systolic function is low normal with an estimated ejection fraction in the rang e of 50- 55%. No regional wall motion abnormalities are present. RIGHT VENTRICLE Normal right ventricular size and systolic function. LEFT ATRIUM The left atrial size is mildly dilated. RIGHT ATRIUM The right atrial size is normal. ATRIAL SEPTUM Thickened atrial septum is noted with morphological features most consistent with a lipomatous atria l septum. AORTA The aortic root and proximal ascending aorta are normal in size on limited imaging. MITRAL VALVE Structurally normal mitral valve. [id number] mitral valve regurgitation. Mild mitral annular calcification. AORTIC VALVE Aortic valve sclerosis is present. No aortic valve regurgitation. No aortic valve stenosis. TRICUSPID VALVE Structurally normal tricuspid valve. There is mild tricuspid valve regurgitation. The estimated pulmonary arterial pressure is 35.2 mmHg. PULMONARY VALVE No pulmonary valve regurgitation or stenosis. VESSELS The inferior vena cava is normal in size. PERICARDIUM No pericardial effusion. Tariq Justice DO (Electronically Signed) Final Date:26 June 2018 14:16
[2018-06-26 16:49] VITALS: BP 166/81; PULSE 69; RESP 20; TEMP 97.1
--- NOTE | 2018-06-30 17:18 | HM ---
Date Performed: 06/26/2018 Time Performed: 15:39:00 HOOKUP DATE: 06/26/18 03:39:00 PM Sat ANALYSIS START TIME: 06/26/2018 3:44:00 PM ANALYSIS END TIME: 06/27/2018 3:48:00 PM PATIENT AGE: 78 PATIENT HEIGHT PATIENT WEIGHT DRUG LIST PATIENT DIAGNOSIS: CVA WITH AMS TEST NARRATIVE: The patient's average heart rate was 69 BPM. No episodes of tachycardia wer e noted. No episodes of bradycardia were noted. No pauses exceeding 2.0 seconds were noted. 218 ventricular ectopics, which represented < 1% of the total beat count, were noted. The highest ve ntricular ectopic frequency occurred from 02:00 AM to 03:00 AM Sun. During this time 20 VE(s) occurr ed. Ventricular ectopics were observed as 218 isolated beat(s) only. No couplets or runs were noted . 4 supraventricular ectopics, which represented < 1% of the total beat count, were noted. The h ighest supraventricular ectopic frequency occurred from 05:00 PM to 06:00 PM Sat. During this time 1 SVE(s) occurred. No episodes of ST depression (defined as -1.0 mm or more) were noted in channel 1. No episodes of ST depression (defined as -1.0 mm or more) were noted in channel 2. No episodes of ST depression (defined as -1.0 mm or more) were noted in channel 3. TEST INTERPRETATION: Sinus rhythm Frequent PVCs Infrequent PACs Sig morgan by : Katie Johnson
== END 2018-06-26 18:30 | disposition home or self-care (01) ==
LOC: PHED 17:30 → PHEDA 17:30 → PH3 06-26 03:48
PROVIDERS: ADMIT Internal Medicine; ATTEND Internal Medicine